=== PATIENT | male | born 1990 | race Caucasian/White ===

== ENCOUNTER 2018-10-19 22:06 | Emergency (ER) | payer SELFPAY ==
[2018-10-19 22:07] VITALS: BP 165/98; PULSE 126; RESP 18; TEMP 36.3; O2SAT 94; BMI 28.3
[2018-10-19 22:37] LABS: Absolute Lymphocyte Count 3.39 X10^3/ul (0.83-4.51); Basophil# 0.04 X10^3/uL; Basophil% 0.3 % (0-1); Eosinophil# 0.17 X10^3/uL; Eosinophils% 1.1 % (0-5); Hematocrit 49.9 % (40-54); Hemoglobin 16.8 g/dl (13.0-16.5); Lymphocyte # 3.39 X10^3/ul (4.0); Lymphocyte % 22.5 % (19-41); Mean Corp Hgb Conc 33.7 g/gl (32-36); Mean Corpuscular Volume 89.1 fL (80-94); Monocyte# 1.37 X10^3/uL; Monocyte% 9.1 % (0-10); Neutrophil # 10.04 X10^3/uL (2.7-7.7); Neutrophil % 66.8 % (47-70); POSITIVE COUNT NO; POSITIVE DIFFERENTIAL NO; POSITIVE MORPHOLOGY NO; Platelet Count 312 K/mm3 (150-450); RBC Distribution Width CV 13.8 % (11.6-14.6); RBC Distribution Width SD 44.9 fl (35.1-43.9)
[2018-10-19 22:49] LABS: Anion Gap 9 (5-15); BUN 19 mg/dL (7-18); BUN/Creat Ratio 15.1 RATIO (10-20); Calcium,Total 9.6 mg/dL (8.5-10.1); Chloride 110 mmol/L (98-107); Creatinine, Serum 1.26 mg/dL (0.70-1.30); EST Glomerular Filtration Rate 72 mL/min (>60); Est Glom Filt Rate - Afr Amer 88 mL/min (>60); Estimated Creatinine Clearance 107.16 ml/min; Glucose 107 mg/dL (74-106); Potassium 3.7 mmol/L (3.5-5.1); Sodium Level 144 mmol/L (136-145)
[2018-10-19 23:27] LABS: Amphetamine Urine VISTA POSITIVE (<1000 ng/mL); Barbiturate Urine VISTA NEGATIVE (< 200 ng/mL); Benzodiazepine Urine VISTA NEGATIVE (< 200 ng/mL); Cocaine Urine VISTA NEGATIVE (< 300 ng/mL); Ecstacy Urine VISTA POSITIVE (< 500 ng/mL); Methadone Urine VISTA NEGATIVE (< 300 ng/mL); PCP Urine VISTA NEGATIVE (< 25 ng/mL); THC Urine VISTA NEGATIVE (< 50 ng/mL); Vista UDS pH Range 6
--- NOTE | 2018-10-19 23:56 | ED.DCSUM_ITS ---
- ER Visit Summary Date of Service: 10/19/18 Chief Complaint: Depression History of Present Illness: The patient is a [address] Godwin. He reports that he got out of [facility] 1 week ago and is living with his sister. They got an argument 2 days ago and he told her I had rather than live here. States that at that time he had used methamphetamine 2 days ago. The sister found out about this today and is concerned that he needs to be assessed for his suicidal thoughts. Patient denies any suicidal or homicidal ideation. No auditory or visual hallucinations. Review of systems: General: No fever, chills, cold sweats. Cardiovascular: No chest pain, palpitations. Respiratory: No cough, shortness of breath, dyspnea on exertion. Gastrointestinal: No abdominal pain, nausea, vomiting, diarrhea, melena, or hematochezia. Genitourinary: No dysuria, frequency, hematuria. Skin: No rash. Neuro: No headache, numbness, weakness. Physical Examination: Vitals: Stable. Afebrile. General: Well-nourished and well-developed. Head: Normocephalic atraumatic. Neck: Supple, no lymphadenopathy. No JVD. Nontender. Cardiovascular: Tachycardic regular rhythm. No murmurs. Respiratory: No respiratory distress. Clear to auscultation bilaterally. Abdominal: Soft, nontender, nondistended, normal bowel sounds. No guarding, rebound, or peritoneal signs. Back: Nontender. Extremities: Nontender, no edema. Skin: Normal color, no rash. Neurologic: Alert and oriented ?3. Cranial nerves II through XII are intact. Normal strength and sensation. Mental status exam: Patient appears their stated age. Good posture and grooming. Good eye contact. Normal rate, volume, and latency of speech. No suicidal or homicidal ideation. No auditory or visual hallucinations. Flow of thought is logical. Insight and judgment is fair. Test Results: Patient had labs for mental health evaluation ordered in triage. These have returned. CBC is remarkable for a white count of 15.0 and hemoglobin of 16.8. Chem-7 is more for chloride 110, BUN of 19, glucose 107. Tox screen shows amphetamines and methamphetamine. But alcohol level 0. Emergency Department Course and Treatment: Patient denies any suicidal thoughts at this time. He denied suicidal thoughts when he stated this to his sister. He reports that he was just upset. Had a prolonged discussion with him about his substance abuse. Treatment Plan: This time patient does not meet criteria for admission to the hospital. He will be discharged with instructions to follow-up with 180 and the counseling center as soon as possible. Follow-up with Dr. Godwin in 1-2 weeks. Return to the emergency department for any worsening symptoms. Disposition: To home in improved and stable condition. Impression: 1. Depression. 2. Methamphetamine abuse. This note was generated with [employer] dictation software. It may contain incorrect words, spelling, and punctuation that were not noted in review of the chart prior to signing ED Disposition - Plan for ED Patient: Disposition: Home or Assisted Living Chief Complaint: Mental Health Instructions: ED Depression, ED Drug Abuse General Referrals: EIGHTY,ONE [STAFF PHYSICIAN] - As soon as possible Counseling,Center [GROUP OF PHYSICIANS] - As soon as possible Tim Godwin MD [Primary Care Provider] - 1-2 Weeks
[2018-10-20 00:02] VITALS: BP 126/90; PULSE 101; RESP 16; O2SAT 100
== END 2018-10-20 00:10 | disposition home or self-care (01) ==
PROVIDERS: Emergency Provider Emergency Medicine; Family Provider Family Medicine; PCP Family Medicine
DX: F32.9 Major depressive disorder, single episode, unspecified (principal); F41.9 Anxiety disorder, unspecified; F15.10 Other stimulant abuse, uncomplicated; Z79.899 Other long term (current) drug therapy; Z72.0 Tobacco use
CPT/HCPCS: 80048; 80307; 80320; 85025; 99282; G0480

== ENCOUNTER 2021-01-18 21:49 | Emergency (ER) | payer MEDICAID, SELFPAY ==
[2021-01-18 21:50] VITALS: BP 165/111; PULSE 135; RESP 16; TEMP 36.4; O2SAT 97; BMI 32.8
--- NOTE | 2021-01-18 22:08 | EKG12_ITS ---
Test Reason : DYSRHYTHMIA Blood Pressure : / mmHG Vent. Rate : 131 BPM Atrial Rate : 131 BPM P-R Int : 160 ms QRS Dur : 100 ms QT Int : 294 ms P-R-T Axes : 041 026 009 degrees QTc Int : 434 ms Sinus tachycardia with occasional Premature ventricular complexes Otherwise normal ECG Confirmed by KAYLA THORNE, SANDY ([id number]), editor managing newspaper HOLLI LYNCH ([id number]) on 01/20/2021 9:30:42 AM Referred By: CL Confirmed By:RAZIA GARZA MD
--- NOTE | 2021-01-18 22:10 | ED.VIS.GEN ---
History of Present Illness Chief Complaint: Mental Health Informant: Patient Narrative: 30-year-old male with no past medical history presents with concern for paranoia. Patient brought in by police after being found outside stating that people are after him. The patient states that there is a small -[place] male that has been following him. States that he met up with his girlfriend at the [facility] [place] and felt like people were following him to the ran away. States that he does use meth. States he used methamphetamine yesterday. Denies any use today. Denies any other con commitment drug abuse. Denies any psychiatric diagnoses. Past Medical History - Allergies and Home Meds Allergies/Adverse Reactions: Allergies No Known Allergies Allergy (Verified 01/18/21 21:51) Primary Care Physician: Tim Godwin MD [COURTESY STAFF PHYSICIAN] - Prior records reviewed: Yes Past Medical History: None Surgical History: no surgical history Lives: Alone Smoking Status: Current every day smoker Alcohol: None Drugs: - - methamphetamine Review of Systems General: Denies: Chills, Fever, Sweats Eyes: Denies: Visual changes - bilaterally, Diplopia ENT: Denies: Rhinorrhea, Sore throat Cardiovascular: Denies: Chest pain, Palpitations Respiratory: Denies: Dyspnea, Cough, Dyspnea on exertion Gastrointestinal: Denies: Abdominal pain, Nausea, Vomiting, Diarrhea, Melena, Hematochezia Genitourinary: Denies: Dysuria, Hematuria, Frequency Musculoskeletal: Denies: Back pain, Extremity Pain Skin: Denies: Rash, Wounds Neurological: Denies: Headache, Weakness, Numbness Psych: Reports: - - paranoia. Denies: Suicidal thoughts, Suicidal ideations Physical Exam Vital Signs/Narrative: Vital Signs Temp Pulse Resp BP Pulse Ox 01/18/21 21:50 97.6 F L 135 H 16 165/111 H 97 Inital Vital Signs reviewed: Yes General: Well nourished, Well developed, No Acute Distress Head: Normocephalic, Atraumatic Eyes: Perrl, EOMI ENT: Moist mucous membranes, No rhinorrhea Neck: Supple, Nontender Cardiovascular: Regular rate, Regular rhythm, No murmurs Respiratory: No distress, CTA bilaterally, Chest nontender Abdomen: Soft, Nontender, Nondistended, Normal bowel sounds Back: Nontender, Normal Inspection Extremities: Nontender, No edema Skin: Normal color, No rash Neurological: Alert, Oriented x3, Cranial nerves II-XII grossly intact, Normal Strength, Normal Sensation Psychological: Normal affect, Normal Mood, - - internally stimulated. paranoid. Diagnostic/Tx/Re-eval Laboratory Data 01/18/21 01/18/21 01/18/21 22:27 22:27 22:27 WBC 12.2 H RBC 5.75 Hgb 16.9 H Hct 50.5 MCV 87.8 MCH 29.4 MCHC 33.5 RDW Std Deviation 44.1 H RDW Coeff of Sarahy 13.6 Plt Count 314 MPV 9.1 Immature Gran % (Auto) 0.300 Neut % (Auto) 68.1 Lymph % (Auto) 21.6 [place] % (Auto) 8.6 Eos % (Auto) 0.7 Baso % (Auto) 0.7 Absolute Neuts (auto) 8.3 H Absolute Lymphs (auto) 2.64 Nucleated RBC % 0 Sodium 142 Potassium 3.3 L Chloride 110 H Carbon Dioxide 26.0 Anion Gap 6 BUN 9 Creatinine 1.31 H Estim Creat Clear Calc 101.23 Est GFR (MDRD) Af Amer 82 Est GFR (MDRD) Non-Af 68 BUN/Creatinine Ratio 6.9 L Glucose 76 Calcium 9.3 Urine Color Urine Clarity Urine pH Ur Specific [place] Urine Protein Urine Glucose (UA) Urine Ketones Urine Occult Blood Urine Nitrite Urine Bilirubin Urine Urobilinogen Ur Leukocyte Esterase Urine RBC Urine WBC Ur Squamous Epith Cells Urine Bacteria Hyaline Casts Fine Granular Casts Urine Mucus Urine Opiates Screen Urine Methadone Screen Ur Barbiturates Screen Ur Phencyclidine Scrn Ur Amphetamines Screen U Methamphetamin-MDMA U Benzodiazepines Scrn Urine Cocaine Screen U Cannabinoids Screen Ur Drug Screen Comment Ethyl Alcohol < 3.0 01/18/21 01/18/21 23:10 23:10 WBC RBC Hgb Hct MCV MCH MCHC RDW Std Deviation RDW Coeff of Sarahy Plt Count MPV Immature Gran % (Auto) Neut % (Auto) Lymph % (Auto) [place] % (Auto) Eos % (Auto) Baso % (Auto) Absolute Neuts (auto) Absolute Lymphs (auto) Nucleated RBC % Sodium Potassium Chloride Carbon Dioxide Anion Gap BUN Creatinine Estim Creat Clear Calc Est GFR (MDRD) Af Amer Est GFR (MDRD) Non-Af BUN/Creatinine Ratio Glucose Calcium Urine Color Yellow Urine Clarity Clear Urine pH 6.0 Ur Specific [place] 1.025 Urine Protein 100 H Urine Glucose (UA) Normal Urine Ketones 5 H Urine Occult Blood 10 H Urine Nitrite Negative Urine Bilirubin Negative Urine Urobilinogen Normal Ur Leukocyte Esterase Negative Urine RBC 0-5 SEEN Urine WBC 0-5 SEEN Ur Squamous Epith Cells 0 SEEN Urine Bacteria 1+ Hyaline Casts 10-25 SEEN Fine Granular Casts 0-5 SEEN Urine Mucus 2+ Urine Opiates Screen NEGATIVE Urine Methadone Screen NEGATIVE Ur Barbiturates Screen NEGATIVE Ur Phencyclidine Scrn NEGATIVE Ur Amphetamines Screen POSITIVE H U Methamphetamin-MDMA POSITIVE H U Benzodiazepines Scrn NEGATIVE Urine Cocaine Screen NEGATIVE U Cannabinoids Screen NEGATIVE Ur Drug Screen Comment Ethyl Alcohol - Rhythm Strip Rhythm Strip: Sinus Tach Rate: 131 Ectopy: PVC(s) - EKG Initial EKG Interpretation: Sinus Tachycardia - Sinus tachycardia at 131 bpm. NH interval 160 ms. QTC of 434 ms. PVC. No evidence of acute ischemia. - Medical Decision Making Patient appears well and nontoxic. Paranoid on exam. Internally stimulated. Initially tachycardic with a heart rate of approximately 130. Patient was given 1 L normal saline, Ativan, Haldol. This did improve the patient's heart rate to approximately 110. Patient does have slightly elevated creatinine likely secondary to volume depletion. He will be given another 1 L normal saline as well as some more Ativan. On reevaluation at 2345 patient is feeling improved. He does remain paranoid. Heart rate continues to improve. At this time patient is medically cleared for evaluation by crisis. After speaking with crisis they feel patient can be discharged home as he has no suicidal ideation and his paranoia has improved following Ativan. Patient's paranoia is likely secondary to his methamphetamine abuse. Patient does have insight into this and does recognize he is paranoid likely secondary to his drug abuse. Advised follow-up with primary care physician and asked to return for new or worsening symptoms. Patient agreeable and stable at time of discharge. Impression: 1. Methamphetamine abuse 2. Paranoia ED Disposition - Plan for ED Patient: Disposition: Home or Assisted Living Instructions: ED Drug Abuse Referrals: Tim Godwin MD [COURTESY STAFF PHYSICIAN] - 2 Days
--- NOTE | 2021-01-18 22:24 | ED.RN ---
NO OLD EKGS IN MUSE
[2021-01-18 22:38] LABS: Absolute Lymphocyte Count 2.64 X10^3/uL (0.83-4.51); Absolute Neutrophil Count 8.3 X10^3/uL (2.0-7.7); Basophil# 0.08 X10^3/uL; Basophil% 0.7 % (0-1); Eosinophil# 0.08 X10^3/uL; Eosinophils% 0.7 % (0-5); Hematocrit 50.5 % (40-54); Hemoglobin 16.9 g/dL (13.0-16.5); Lymphocyte # 2.64 X10^3/ul (4.0); Lymphocyte % 21.6 % (19-41); Mean Corp Hgb Conc 33.5 g/dL (32-36); Mean Corpuscular Hgb 29.4 pg (27.0-32.0); Mean Corpuscular Volume 87.8 fL (80-94); Mean Platelet Vol. 9.1 fl (6.2-12.0); Monocyte# 1.05 X10^3/uL; Monocyte% 8.6 % (0-10); NRBC Flagged by Analyzer 0 % (0-5); Neutrophil # 8.34 X10^3/uL (2.7-7.7); Neutrophil % 68.1 % (47-70); Platelet Count 314 K/mm3 (150-450); RBC Distribution Width CV 13.6 % (11.6-14.6); RBC Distribution Width SD 44.1 fl (35.1-43.9); Red Blood Count 5.75 M/mm3 (4.6-6.2); White Blood Count 12.2 K/mm3 (4.4-11.0)
[2021-01-18 22:52] LABS: Anion Gap 6 (5-15); BUN 9 mg/dL (7-18); BUN/Creat Ratio 6.9 RATIO (10-20); Calcium,Total 9.3 mg/dL (8.5-10.1); Chloride 110 mmol/L (98-107); Creatinine, Serum 1.31 mg/dL (0.70-1.30); EST Glomerular Filtration Rate 68 mL/min (>60); Est Glom Filt Rate - Afr Amer 82 mL/min (>60); Estimated Creatinine Clearance 101.23 ml/min; Glucose 76 mg/dL (74-106); Potassium 3.3 mmol/L (3.5-5.1); Sodium Level 142 mmol/L (136-145)
[2021-01-18 23:00] LABS: Alcohol, Blood (Medical)-Serum < 3.0 mg/dL
[2021-01-18] MEDS: LORazepam 2 MG/ML Syringe 1 MG IV (23:02)
[2021-01-18] MEDS: 0.9% Normal Saline 1,000 ML 999 ML IV (23:03)
[2021-01-18 23:13] LABS: Squamous Epithelial Cells - UA 0 SEEN /hpf (0-5)
[2021-01-18 23:26] LABS: Color, Urine Yellow (Yellow); Glucose, Dipstick Normal (Normal); Ketone-Dipstick 5 mg/dl (Negative); Leukocyte Esterase-Dipstick Negative /ul (Negative); Nitrite-Dipstick Negative (Negative); Occult Blood-Urine 10 /ul (Negative); Protein-Dipstick 100 mg/dl (Negative); Specific Gravity, Urine 1.025 (1.002-1.030); Urine Bilirubin Dipstick Negative (Negative); Urine Clarity Clear (Clear); Urine Urobilinogen Normal (Normal)
[2021-01-18 23:40] VITALS: BP 134/81; PULSE 117
--- NOTE | 2021-01-18 23:40 | ED.RN ---
pt refuses to wear avelino philippe md aware.
[2021-01-18 23:43] LABS: Bacteria 1+ /hpf (None Seen); Hyaline Cast 10-25 SEEN /lpf (0-5); Mucous, Urine 2+ /hpf (<or=2+); Red Blood Cells-Urine 0-5 SEEN /hpf (0-5); White Blood Cells 0-5 SEEN /hpf (0-5)
[2021-01-18 23:44] LABS: Amphetamine Urine VISTA POSITIVE (<1000 ng/mL); Barbiturate Urine VISTA NEGATIVE (< 200 ng/mL); Benzodiazepine Urine VISTA NEGATIVE (< 200 ng/mL); Cocaine Urine VISTA NEGATIVE (< 300 ng/mL); Ecstacy Urine VISTA POSITIVE (< 500 ng/mL); Fine Granular Cast- Urine 0-5 SEEN /lpf (0-5); Methadone Urine VISTA NEGATIVE (< 300 ng/mL); PCP Urine VISTA NEGATIVE (< 25 ng/mL); THC Urine VISTA NEGATIVE (< 50 ng/mL); Vista UDS pH Range 5
[2021-01-19] MEDS: Potassium Chloride Oral Tablet 20 MEQ 40 MEQ PO (00:26)
--- NOTE | 2021-01-19 00:33 | ED.RN ---
PAGED CRISIS AND FAXED THE REPORT
[2021-01-19 00:36] VITALS: BP 130/92; PULSE 113; RESP 18; O2SAT 100
[2021-01-19] MEDS: LORazepam 2 MG/ML Syringe 0.5 MG IV (00:46)
[2021-01-19 02:09] VITALS: PULSE 88; RESP 16; O2SAT 98
== END 2021-01-19 02:10 | disposition home or self-care (01) ==
PROVIDERS: Emergency Provider Emergency Medicine
DX: F15.10 Other stimulant abuse, uncomplicated (principal); F22 Delusional disorders; F17.200 Nicotine dependence, unspecified, uncomplicated
CPT/HCPCS: 80048; 80307; 81001; 82077; 85025; 87426; 93005; 96374; 96375; 99283; J7030; A4216

== ENCOUNTER 2021-01-19 22:40 | Emergency (ER) | payer MEDICAID, SELFPAY ==
[2021-01-18 21:50] VITALS: BMI 32.8
[2021-01-19 22:41] VITALS: BP 161/95; PULSE 112; RESP 18; TEMP 36.2; O2SAT 95; BMI 32.8
--- NOTE | 2021-01-19 23:05 | ED.VIS.GEN ---
History of Present Illness Chief Complaint: Mental Health Informant: Patient, - - Police Current Severity: Moderate Maximum Severity: Moderate Narrative: Patient presents with [facility] [employer] due to paranoia. They reportedly were called to the [employer] [facility] where patient was causing problems. Patient does admit to using meth and states the last use was 2 days ago. He states he was shooting up at that time. Patient states that there are people following him that are going to try to kill him. He has not seen a weapon. He states he just wants someone to believe him. Patient was seen on the , yesterday, for the same complaints. He was evaluated by crisis. Because he was not suicidal or homicidal they felt patient could be treated as an outpatient. Patient returns again tonight with police. - Past Medical History (1) Bipolar disorder Status: Chronic Past Medical History - Allergies and Home Meds Allergies/Adverse Reactions: Allergies No Known Allergies Allergy (Verified 01/19/21 22:41) Primary Care Physician: Care Physician,No Primary [Primary Care Provider] - Surgical History: no surgical history Smoking Status: Current every day smoker Drugs: - - Methamphetamines Review of Systems General: Denies: Chills, Fever Eyes: Denies: Visual changes - bilaterally ENT: Denies: Bilateral ear pain Cardiovascular: Denies: Chest pain Respiratory: Denies: Dyspnea, Cough Gastrointestinal: Denies: Abdominal pain, Vomiting, Diarrhea Musculoskeletal: Denies: Swelling, Extremity Pain Skin: Denies: Rash Neurological: Denies: Headache Psych: Reports: Anxiety. Denies: Suicidal thoughts Allergy: Denies: Uticaria Physical Exam Vital Signs/Narrative: Vital Signs Temp Pulse Resp BP Pulse Ox 01/19/21 22:41 97.1 F L 112 H 18 161/95 H 95 Inital Vital Signs reviewed: Yes General: Well nourished, Well developed Head: Normocephalic Neck: Supple Cardiovascular: Tachycardia Respiratory: No distress, CTA bilaterally Abdomen: Soft, Nontender Back: Nontender Extremities: Nontender Skin: Normal color, No rash Neurological: Alert, Oriented x3 Psychological: - - Operative and talkative. Patient does express paranoia about people following him and he is concerned they are going to follow him here to the hospital. He states he does not feel safe here because he is concerned someone is going to come after him. Diagnostic/Tx/Re-eval Laboratory Results 01/19/21 01/19/21 01/19/21 22:15 22:15 23:28 WBC 11.1 H RBC 5.37 Hgb 16.3 Hct 47.5 MCV 88.5 MCH 30.4 MCHC 34.3 RDW Std Deviation 44.6 H RDW Coeff of Sarahy 14.0 Plt Count 265 MPV 9.4 Immature Gran % (Auto) 0.400 Neut % (Auto) 50.5 Lymph % (Auto) 38.2 [place] % (Auto) 7.5 Eos % (Auto) 2.8 Baso % (Auto) 0.6 Absolute Neuts (auto) 5.6 Absolute Lymphs (auto) 4.26 Nucleated RBC % 0 Sodium 140 Potassium 3.6 Chloride 109 H Carbon Dioxide 26.0 Anion Gap 5 BUN 9 Creatinine 1.04 Estim Creat Clear Calc 127.51 Est GFR (MDRD) Af Amer 107 Est GFR (MDRD) Non-Af 89 BUN/Creatinine Ratio 8.7 L Glucose 90 Calcium 8.9 Urine Opiates Screen Urine Methadone Screen Ur Barbiturates Screen Ur Phencyclidine Scrn Ur Amphetamines Screen U Methamphetamin-MDMA U Benzodiazepines Scrn Urine Cocaine Screen U Cannabinoids Screen Ur Drug Screen Comment Ethyl Alcohol < 3.0 01/20/21 00:30 WBC RBC Hgb Hct MCV MCH MCHC RDW Std Deviation RDW Coeff of Sarahy Plt Count MPV Immature Gran % (Auto) Neut % (Auto) Lymph % (Auto) [place] % (Auto) Eos % (Auto) Baso % (Auto) Absolute Neuts (auto) Absolute Lymphs (auto) Nucleated RBC % Sodium Potassium Chloride Carbon Dioxide Anion Gap BUN Creatinine Estim Creat Clear Calc Est GFR (MDRD) Af Amer Est GFR (MDRD) Non-Af BUN/Creatinine Ratio Glucose Calcium Urine Opiates Screen NEGATIVE Urine Methadone Screen NEGATIVE Ur Barbiturates Screen NEGATIVE Ur Phencyclidine Scrn NEGATIVE Ur Amphetamines Screen POSITIVE H U Methamphetamin-MDMA POSITIVE H U Benzodiazepines Scrn NEGATIVE Urine Cocaine Screen NEGATIVE U Cannabinoids Screen NEGATIVE Ur Drug Screen Comment Ethyl Alcohol - Medical Decision Making Patient was given 1 mg of p.o. Ativan. Patient was evaluated by Becky from the counseling center. She also evaluated the patient last night. She states that the patient's presentation and evaluation are significantly different tonight than previously. Patient was very difficult to redirect and was carrying on a conversation with a light in the room. Patient also told one of the nurses that he wanted to speak with law enforcement about reporting his own homicide as he had been murdered. At this time counseling center is recommending placement and they will work on acceptance. [place] slip has been filled out and faxed to them. Addendum: Patient has been accepted at [facility]. ED Disposition - Plan for ED Patient: Disposition: Psychiatric Hospital or Unit Diagnosis: Paranoia Referrals: Care Physician,No Primary [Primary Care Provider] -
[2021-01-19] MEDS: LORazepam 1 MG Tablet PO (23:27)
[2021-01-19 23:40] VITALS: RESP 18
[2021-01-19 23:42] LABS: Alcohol, Blood (Medical)-Serum < 3.0 mg/dL
[2021-01-19 23:43] LABS: Anion Gap 5 (5-15); BUN 9 mg/dL (7-18); BUN/Creat Ratio 8.7 RATIO (10-20); Calcium,Total 8.9 mg/dL (8.5-10.1); Chloride 109 mmol/L (98-107); Creatinine, Serum 1.04 mg/dL (0.70-1.30); EST Glomerular Filtration Rate 89 mL/min (>60); Est Glom Filt Rate - Afr Amer 107 mL/min (>60); Estimated Creatinine Clearance 127.51 ml/min; Glucose 90 mg/dL (74-106); Potassium 3.6 mmol/L (3.5-5.1); Sodium Level 140 mmol/L (136-145)
[2021-01-19 23:49] LABS: Absolute Lymphocyte Count 4.26 X10^3/uL (0.83-4.51); Absolute Neutrophil Count 5.6 X10^3/uL (2.0-7.7); Basophil# 0.07 X10^3/uL; Basophil% 0.6 % (0-1); Eosinophil# 0.31 X10^3/uL; Eosinophils% 2.8 % (0-5); Hematocrit 47.5 % (40-54); Hemoglobin 16.3 g/dL (13.0-16.5); Lymphocyte # 4.26 X10^3/ul (4.0); Lymphocyte % 38.2 % (19-41); Mean Corp Hgb Conc 34.3 g/dL (32-36); Mean Corpuscular Hgb 30.4 pg (27.0-32.0); Mean Corpuscular Volume 88.5 fL (80-94); Mean Platelet Vol. 9.4 fl (6.2-12.0); Monocyte# 0.84 X10^3/uL; Monocyte% 7.5 % (0-10); NRBC Flagged by Analyzer 0 % (0-5); Neutrophil # 5.61 X10^3/uL (2.7-7.7); Neutrophil % 50.5 % (47-70); Platelet Count 265 K/mm3 (150-450); RBC Distribution Width SD 44.6 fl (35.1-43.9); Red Blood Count 5.37 M/mm3 (4.6-6.2); White Blood Count 11.1 K/mm3 (4.4-11.0)
[2021-01-20] VITALS: RESP 18
--- NOTE | 2021-01-20 00:19 | ED.RN ---
crisis paged to speak with patient
--- NOTE | 2021-01-20 00:41 | ED.RN ---
patient chart faxed to crisis at this time
--- NOTE | 2021-01-20 01:00 | ED.RN ---
crisis talking with patient at this time
[2021-01-20 01:09] LABS: Amphetamine Urine VISTA POSITIVE (<1000 ng/mL); Barbiturate Urine VISTA NEGATIVE (< 200 ng/mL); Benzodiazepine Urine VISTA NEGATIVE (< 200 ng/mL); Cocaine Urine VISTA NEGATIVE (< 300 ng/mL); Ecstacy Urine VISTA POSITIVE (< 500 ng/mL); Methadone Urine VISTA NEGATIVE (< 300 ng/mL); PCP Urine VISTA NEGATIVE (< 25 ng/mL); THC Urine VISTA NEGATIVE (< 50 ng/mL); Vista UDS pH Range 5
[2021-01-20 01:45] VITALS: RESP 18
[2021-01-20 03:10] VITALS: RESP 18
[2021-01-20 04:33] VITALS: BP 124/64; PULSE 72; RESP 16; O2SAT 95
[2021-01-20 04:40] VITALS: BP 124/64; PULSE 72; RESP 16; TEMP 36.4; O2SAT 95
== END 2021-01-20 05:17 ==
PROVIDERS: Emergency Provider Emergency Medicine
DX: F22 Delusional disorders (principal); F17.200 Nicotine dependence, unspecified, uncomplicated
CPT/HCPCS: 80048; 80307; 82077; 85025; 87426; 99285

== ENCOUNTER 2023-03-04 19:57 | Emergency (ER) | payer MEDICAID, SELFPAY ==
[2023-03-04 19:58] VITALS: BP 137/86; PULSE 102; RESP 18; TEMP 36.8; O2SAT 97; BMI 30.7
--- NOTE | 2023-03-04 22:56 | EDS_ITS ---
HPI History of Present Illness Chief Complaint: Allergic Reaction Informant: patient Narrative Narrative: Patient concerned he may have poison lani. 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 No systemic symptoms. He is not confident that he was around a specific plant including poison lani but just assumes that what this is. States he had it a couple of weeks ago, was not nearly as bad as this, he did not get any medications for it. [facility] Medical History Hypertension Left knee pain Substance abuse Synovial cyst of popliteal space [Do], left knee Home Medications quetiapine 25 mg tablet (Seroquel) 25 mg PO DAILY 10/11/22 [History Last Taken Unknown] prednisone 20 mg tablet 40 mg PO QHS #12 TABLETS 03/04/23 [Rx Last Taken Unknown] Allergy/AdvReac Type Severity Reaction Status Date / Time No Known Allergies Allergy Verified 03/04/23 19:59 Social History Smoking Status: Current every day smoker tobacco type: cigarettes alcohol intake: never substance use type: former substance user what type of physical activity do you participate in: other details: push ups, 300 daily ROS ROS ED Respiratory/Chest Respiratory/Chest: Denies dyspnea Integumentary Reports as per HPI, pruritus and rash Neurologic Neurologic: Denies headache(s), paresthesias or weakness EXAM Physical Exam Const Vital Signs: 03/04/23 19:58 Temperature 98.2 F Temperature Source Temporal Pulse Rate 102 H Respiratory Rate 18 Blood Pressure 137/86 H Blood Pressure Mean 103 Pulse Ox 97 Oxygen Delivery Method Room Air Positive well nourished and well developed General Appearance ED: well developed and NAD Extremity General Extremety ED: Negative for edema or tenderness General Extremity: Negative for edema Neuro oriented x3, CN's II-XII intact bilaterally and no sensory deficits noted Motor Exam: strength 5/5 throughout Psych mental status grossly normal Skin Skin Narrative: Change in mental status rash throughout many areas of body, most prominent on forearms, erythema blanching but no vesicular lesions, petechiae, bullae. Basically just patches of itchy erythema. There are some on the legs, trunk, forehead. MDM MDM MDM Narrative Medical decision making narrative: I reassured him this is not Beatriz dermatitis but the treatment would be the same given that it is still likely a plant-related contact dermatitis. We will give him prednisone and appropriate discharge instructions, he has Benadryl at home to take for tonight for itching. Discharge Plan Triage Chief Complaint: Allergic Reaction ED Provider: Aldair Bruce Dx/Rx/DC Orders Clinical Impression: Allergic contact dermatitis due to plant Instructions: Avoiding Poison Lani Poison [place] ..., Understanding Contact Dermatitis Prescriptions: New prednisone 20 mg tablet 40 mg PO QHS Qty: 12 0RF No Action quetiapine [Seroquel] 25 mg tablet 25 mg PO DAILY Primary Care Provider: Care Physician,No Primary Referrals: Doctor,Your [Non-Staff] - 10-14 Days if not better Disposition Disposition: Home, Self Care
[2023-03-04] MEDS: predniSONE 20 MG Tablet 40 MG PO (23:03)
== END 2023-03-04 23:10 | disposition home or self-care (01) ==
PROVIDERS: Emergency Provider Emergency Medicine; Visit Provider Emergency Medicine
DX: L23.7 Allergic contact dermatitis due to plants, except food (principal)
CPT/HCPCS: 99283

== ENCOUNTER 2023-09-15 20:22 | Emergency (ER) | payer MEDICAID, SELFPAY ==
[2023-09-15 20:22] VITALS: BP 148/93; PULSE 125; RESP 16; TEMP 36.8; O2SAT 99; BMI 31.6
[2023-09-15 20:33] VITALS: BP 159/109; PULSE 108; RESP 16; O2SAT 98
--- NOTE | 2023-09-15 20:34 | ED.VIS.CHEST ---
HPI History of Present Illness Chief Complaint: Chest Pain Informant: patient Onset/Context/Timing Onset: Today and Hours Activity at onset: gradual Timing: Continuous Location: Left Chest Current Severity: Mild Maximum Severity: Mild Worsened By: Movement of Torso Relieved By: Nothing Associated Symptoms: Negative for Nausea, Vomiting, Diaphoresis, Dyspnea, Cough, Fever, Lightheadedness, Acid Reflux or Palpitations Narrative Narrative: 33-year-old male no significant past medical history. Does state that he has a history of IV drug abuse or uses methamphetamine. Denies any cardiac history. No history of DVT or PE. No risk factors. No recent travel, surgery or immobilization. No leg pain or swelling. No hemoptysis. States he gets left upper shoulder upper chest pain has been getting this intermittently for 5 years. There is times he does not get it at all. Today around 11 AM after he woke up he had a discomfort. He said normally goes away and has not today. He denies any fall injury or trauma. He is not having any shortness of breath. No fever. No chills. No diaphoresis. No exertional symptoms. No significant family history. Prior Similar Symptoms: Yes Recent Illness/Hospitalization: No CVD Risk Factors: Negative for Hypertension, Diabetes, Hypercholesterolemia, Family History 1' </=55 or Smoking PE Risk Factors: Negative for Recent Travel/Surgery, Recent Immobilization, Prior DVT or PE, Cancer or OCP + Smoking + >/=35 TAD Risk Factors: Negative for Marfan's Syndrome [facility] Medical History Hypertension Left knee pain Substance abuse Synovial cyst of popliteal space [Do], left knee Home Medications NK 09/15/23 [History Last Taken Unknown] Allergy/AdvReac Type Severity Reaction Status Date / Time No Known Allergies Allergy Verified 09/15/23 20:24 Family History no significant family his no significant family history Surgical History no surgical history no surgical history Social History Smoking Status: Current every day smoker tobacco type: cigarettes alcohol intake: never substance use type: former substance user what type of physical activity do you participate in: other details: push ups, 300 daily ROS ROS ED ROS Narrative His recent illness. Atypical nonexertional left upper chest and shoulder pain. Review of Systems ROS Unobtainable: Denies due to encephalopathy Constitutional Constitutional ED: Denies chills or fever(s) Eyes Eyes: Reports none ENT ENT ED: Denies ear pain Cardiovascular Cardiovascular: Reports as per HPI and chest pain; Denies orthopnea, palpitations, paroxysmal nocturnal dyspnea or racing heartbeat Respiratory/Chest Respiratory/Chest: Denies cough, dyspnea, dyspnea on exertion, orthopnea, paroxysmal nocturnal dyspnea or sputum Gastrointestinal Gastrointestinal: Denies abdominal pain, constipation, diarrhea, melena, nausea or vomiting Genitourinary Genitourinary ED: Denies dysuria or hematuria Musculoskeletal Musculoskeletal: Denies arthralgias Integumentary Denies abscess Neurologic Neurologic: Denies headache(s) Psychiatric Psychiatric: Denies anxiety Endocrine Endocrinology: Denies cold intolerance Hematologic/Lymphatic Hematologic/Lymphatic: Denies easy bleeding, easy bruising or lymphadenopathy Allergic/Immunologic Allergic/Immunologic ED: Denies mouth swelling, tongue swelling, urticaria or other EXAM Physical Exam Narrative Exam Narrative: Well-appearing 33-year-old male. Vital signs stable afebrile. He does not look septic toxic nor is he in any distress. Pulse ox 99% on room air no signs hypoxia. HEENT exam unremarkable. Neck nontender. No lymphadenopathy. Lungs clear to auscultation bilaterally. Heart regular rhythm rate about 100 no murmur. Chest wall shoulder and back are all nontender. Abdomen soft nontender normal bowel sounds no peritoneal signs. Moving all 4 extremities. Calves are nontender without edema. No cords. Equal symmetrical radial pulses. Full range of motion of his left arm and shoulder. No axillary lymphadenopathy or tenderness. Back nontender. Neurologically is awake alert with no focal motor deficits. Skin no rashes. Multiple tattoos. Track quiles in both antecubital regions. No no infected IVDU sites. Const Vital Signs: 09/15/23 20:22 09/15/23 20:33 09/15/23 20:33 Temperature 98.3 F Temperature Source Oral Pulse Rate 125 H 108 H Respiratory Rate 16 16 Blood Pressure 148/93 H 159/109 H Blood Pressure Mean 111 125 Pulse Ox 99 98 98 Oxygen Delivery Method Room Air Room Air Room Air Positive well nourished, well developed and unkempt; Negative for obese, cachectic or contractures General Appearance ED: unkempt, well developed and NAD; Negative for cachectic, contractures or pallor Nutritional Appearance: Negative for cachectic or obese HEENT Reports moist mucous membranes normocephalic and atraumatic; Negative for trauma or tenderness Eyes PERRL and EOMs intact bilaterally General Eye ED: Negative for pale conjunctiva or scleral icterus Neck no lymphadenopathy, supple and no JVD General: Negative for tenderness Chest Wall inspection of chest normal and palpation of chest normal Chest: Negative for tenderness Resp normal respiratory effort and clear to auscultation bilaterally Effort and Inspection: Negative for respiratory distress Auscultation: Negative for rales, rhonchi or wheezes Cardio regular rate, regular rhythm, S1 normal heart sound, S2 normal heart sound and no murmurs Peripheral Pulses: pulses 2+ throughout GI normal to inspection, nondistended, normoactive bowel sounds, soft to palpation, non-tender, non-distended and no masses Auscultation: Negative for hyperactive bowel sounds Palpation: Negative for splenomegaly Back/Spine no CVA tenderness and no thoracic nor lumbar tenderness General Back: Negative for CVA tenderness Cervical Spine: Negative for cervical spine tenderness Extremity normal to inspection General Extremety ED: Negative for edema, pulses abnormal or tenderness General Extremity: Negative for edema or pulses abnormal Neuro oriented x3, CN's II-XII intact bilaterally and gait normal Sensorium / Orientation: awake, alert, oriented to person, oriented to place and oriented to time; Negative for confused, lethargic, stuporous or other Motor Exam: strength 5/5 throughout Psych mental status grossly normal Appearance: unkempt Attitude: No agitated Mood & Affect: Negative for depressed, anxious or tearful Skin no rashes or lesions noted and no wounds General Skin Exam: Negative for jaundice or pallor Rashes: No rashes noted Trauma: Negative for abrasion or laceration Heart Score History: Slightly/Non-Suspicious ECG: Normal Age: </= 45 years Risk Factors: No Risk Factors Troponin: </= Normal Limit Score: 0 MDM MDM MDM Narrative Medical decision making narrative: 32-year-old male with atypical nonreproducible left upper chest shoulder discomfort. Clinically this does not sound to be cardiac in etiology. He has a history of IV drug abuse definitely sound like endocarditis or pericarditis or myocarditis. He has had intermittent episodes of this over 5 years. He is never had a DVT or PE nor risk factors. His exam is unremarkable. Will undergo cardiac work-up. Then will be reassessed. Repeat exam patient doing well at 9:40 PM. We went over his test results. He is comfortable being discharged home with outpatient follow-up. History & Record Review Discussion w/independent historian: Patient Additional record(s) reviewed:: Prior inpatient record, Prior outpatient record, Prior ED visit and Prior labs Lab Data Attestation: I reviewed the patient's lab results. Lab results narrative: Patient is a white count 11.8. H&H of 18.3 and 55.7. Platelet count 296. BMP is unremarkable gap of 4 normal BUN of 10 creatinine 1.1. Glucose 115. Troponin is 6. Labs: Laboratory Results - last 24 hr 09/15/23 20:42 WBC 11.8 H RBC 6.29 H Hgb 18.3 H* Hct 55.7 H MCV 88.6 MCH 29.1 MCHC 32.9 RDW Std Deviation 41.7 RDW Coeff of Sarahy 12.8 Plt Count 296 MPV 8.8 Immature Gran % (Auto) 0.200 Neut % (Auto) 62.2 Lymph % (Auto) 28.1 [place] % (Auto) 5.5 Eos % (Auto) 3.1 Baso % (Auto) 0.9 Absolute Neuts (auto) 7.3 Absolute Lymphs (auto) 3.31 Nucleated RBC % 0 Diff Path Review May foll Sodium 139 Potassium 3.8 Chloride 107 Carbon Dioxide 28.0 Anion Gap 4 L BUN 10 Creatinine 1.17 Estim Creat Clear Calc 110.25 Est GFR (MDRD) Af Amer 92 Est GFR (MDRD) Non-Af 76 BUN/Creatinine Ratio 8.5 L Glucose 115 H Calcium 8.9 Troponin I High Sens 6 Radiography Chest X-Ray - ED: 1 View, Read by ED Physician, Heart, Lungs, Mediastinum, Bony Structures, No Acute Disease and Chronic Changes Diagnostic Testing: Right, portable, single view shows no acute abnormality. Interpreted by myself. Normal cardiac silhouette. Normal lung bob. No infiltrate. No pneumothorax. Rhythm Strip Rhythm Strip: Sinus Rhythm Rate: 100 Ectopy: None EKG Initial EKG: Attestation: I personally reviewed and interpreted this EKG as follows: Interpretation: Sinus Rhythm and No Acute Injury Pattern Comments: Normal sinus rhythm. Rate 100. No acute signs of ND or ischemia. No S1Q3T3. No old EKG available for comparison. Prior EKG tracings: not available for review Prior: No Prior Discharge Plan Triage Chief Complaint: Chest Pain ED Provider: Jayden Whitt Dx/Rx/DC Orders Clinical Impression: History of intravenous drug abuse, Chest pain of uncertain etiology Instructions: ED Chest Pain, Uncertain Cause Prescriptions: No Action NK Primary Care Provider: Care Physician,No Primary Referrals: Shaheed Mckeon MD [Non-Staff] - 1 Week if not improving Care Physician,No Primary [Primary Care Provider] - Activity Restrictions/Additional Instructions: Your exam was normal. Your labs were unremarkable. Your chest x-ray and EKG were normal. Follow-up to get a local primary care physician. Long-term follow-up with 180 and for your long-term health try to stop using the methamphetamines. Disposition Disposition: Home, Self Care
[2023-09-15 20:52] LABS: Absolute Lymphocyte Count 3.31 X10^3/uL (0.83-4.51); Absolute Neutrophil Count 7.3 X10^3/uL (2.0-7.7); Basophil# 0.11 X10^3/uL; Basophil% 0.9 % (0-1); Eosinophil# 0.37 X10^3/uL; Eosinophils% 3.1 % (0-5); Lymphocyte # 3.31 X10^3/ul (0.83-4.51); Lymphocyte % 28.1 % (19-41); Mean Corp Hgb Conc 32.9 g/dL (32-36); Mean Corpuscular Hgb 29.1 pg (27.0-32.0); Mean Corpuscular Volume 88.6 fL (80-94); Mean Platelet Vol. 8.8 fl (6.2-12.0); Monocyte# 0.65 X10^3/uL; Monocyte% 5.5 % (0-10); NRBC Flagged by Analyzer 0 % (0-5); Neutrophil # 7.31 X10^3/uL (2.7-7.7); Neutrophil % 62.2 % (47-70); Platelet Count 296 K/mm3 (150-450); RBC Distribution Width CV 12.8 % (11.6-14.6); RBC Distribution Width SD 41.7 fl (35.1-43.9); Red Blood Count 6.29 M/mm3 (4.6-6.2); White Blood Count 11.8 K/mm3 (4.4-11.0)
[2023-09-15 21:04] LABS: Hematocrit 55.7 % (40-54)
[2023-09-15 21:05] LABS: Hemoglobin 18.3 g/dL (13.0-16.5)
[2023-09-15 21:17] LABS: Anion Gap 4 (5-15); BUN 10 mg/dL (7-18); BUN/Creat Ratio 8.5 RATIO (10-20); Calcium,Total 8.9 mg/dL (8.5-10.1); Chloride 107 mmol/L (98-107); Creatinine, Serum 1.17 mg/dL (0.70-1.30); EST Glomerular Filtration Rate 76 mL/min (>60); Est Glom Filt Rate - Afr Amer 92 mL/min (>60); Estimated Creatinine Clearance 110.25 ml/min; Glucose 115 mg/dL (74-106); Potassium 3.8 mmol/L (3.5-5.1); Sodium Level 139 mmol/L (136-145); Troponin-I HS 6 pg/mL (3.0-78.0)
--- NOTE | 2023-09-15 21:20 | RAD_ITS ---
EXAM: XR CHEST, 1 VIEW CLINICAL INDICATION: chest pain TECHNIQUE: Frontal view of the chest. COMPARISON: No relevant prior studies available. FINDINGS: LUNGS AND PLEURAL SPACES: Unremarkable. No consolidation or edema. No pneumothorax. No effusion. HEART: Unremarkable. Cardiac silhouette not enlarged. MEDIASTINUM: Central airways and mediastinal contour are unremarkable. BONES/JOINTS: Unremarkable. No acute fracture. SOFT TISSUES: Unremarkable. RAD/Chest 1 View (Portable) IMPRESSION: No radiographic evidence of acute cardiopulmonary disease. Electronically Signed: Antonio Nicole MD at 21:45 EST ,
[2023-09-17 10:09] LABS: Pathologist Review Reviewed
== END 2023-09-15 22:10 | disposition home or self-care (01) ==
PROVIDERS: Emergency Provider Emergency Medicine; Visit Provider Emergency Medicine
DX: R07.9 Chest pain, unspecified (principal); F17.210 Nicotine dependence, cigarettes, uncomplicated
CPT/HCPCS: 71045; 80048; 84484; 85025; 93005; 99283

== ENCOUNTER 2023-12-23 16:45 | Outpatient (REF) | payer SELFPAY ==
[2023-12-23 16:46] VITALS: BP 144/94; PULSE 130; RESP 18; TEMP 36.1; O2SAT 98
--- NOTE | 2023-12-23 18:00 | CT_ITS ---
EXAM: CT CHEST, ABDOMEN AND PELVIS WITHOUT INTRAVENOUS CONTRAST CLINICAL INDICATION: Foreign Body abdomen, Bilateral lung pain TECHNIQUE: Helically acquired images were obtained of the chest, abdomen and pelvis without intravenous contrast. This CT exam was performed using one or more of the following dose reduction techniques: automated exposure control, adjustment of the mA and/or kV according to patient size, and/or use of iterative reconstruction technique. COMPARISON: No relevant prior studies available. FINDINGS: CHEST: LUNGS AND PLEURAL SPACES: There is a calcified granuloma in the right upper lobe. No mass. No pleural effusion or thickening. No pneumothorax. HEART: Unremarkable. Heart size is normal. No pericardial effusion. No significant coronary artery calcifications. MEDIASTINUM: Unremarkable. No mediastinal or hilar adenopathy. Esophagus is unremarkable. No hiatal hernia. THYROID: Unremarkable. No thyroid lesions. ABDOMEN: LIVER: Unremarkable. Homogeneous. GALLBLADDER AND BILE DUCTS: Unremarkable. No calcified gallstones. No gallbladder distention or wall edema. No intra- or extrahepatic biliary ductal dilation. PANCREAS: Unremarkable. No focal cystic mass. SPLEEN: Unremarkable. Normal size without focal cystic or solid mass. ADRENALS: Unremarkable. No nodules. KIDNEYS AND URETERS: Unremarkable. Normal renal size and position. No hydronephrosis. STOMACH AND BOWEL: Unremarkable. No stomach or bowel distention. No focal inflammatory change. PELVIS: APPENDIX: No evidence of acute appendicitis. BLADDER: Unremarkable. REPRODUCTIVE: Unremarkable as visualized. No mass. CHEST, ABDOMEN and PELVIS: INTRAPERITONEAL SPACE: Unremarkable. No ascites or other fluid collection. No free air. BONES/JOINTS: Unremarkable. No suspicious lytic or blastic abnormality. SOFT TISSUES: Unremarkable. No discrete abdominal or pelvic wall hernia. VASCULATURE: Unremarkable. Aorta is non-dilated. LYMPH NODES: Unremarkable. No enlarged lymph nodes. CT/CT Chest, Abd, Pelvis WO Cont IMPRESSION: No acute findings in the chest, abdomen or pelvis. Electronically Signed: Parish Castro MD at 18:58 EST ,
--- NOTE | 2023-12-23 18:19 | EX.ED.DYSGE1 ---
HPI History of Present Illness Chief Complaint: Foreign Body Narrative Narrative: 33-year-old male past medical history of bipolar disorder, states that on occasion he injects meth amphetamines, presents in custody of police because officers report that scan was done at the detention, and they suspect foreign body in his abdomen. Patient denies ingestion of any foreign body, no abdominal pain, but he does state that he has been having lung pain for 5 years, worse over the last few weeks. He is presented in custody of police to see if he has a foreign body in his abdomen. [facility] Medical History Hypertension Left knee pain Substance abuse Synovial cyst of popliteal space [Do], left knee Home Medications NK 09/15/23 [History Last Taken Unknown] Allergy/AdvReac Type Severity Reaction Status Date / Time No Known Allergies Allergy Verified 12/23/23 16:46 Social History Smoking Status: Current every day smoker tobacco type: cigarettes alcohol intake: never substance use type: former substance user what type of physical activity do you participate in: other details: push ups, 300 daily ROS ROS ED ROS Narrative Constitutional: No fever, no chills. HEENT: No sore throat. No neck pain. No loss of vision. No rhinorrhea. Cardiovascular: No chest pain. No palpitations. No pedal edema. Respiratory: No cough, no shortness of breath. Chronic bilateral lung pain. Abdominal: No abdominal pain. No nausea. No vomiting. Genitourinary: No dysuria. No hematuria. Musculoskeletal: No myalgias. No arthralgias. Neurologic: No headaches. No dizziness. No lightheadedness. Skin: No rash. No change in color. Psychiatric: No depression. No anxiety. EXAM Physical Exam Narrative Exam Narrative: Afebrile. Vital signs noted. HEENT: Normocephalic. Atraumatic. PERRL, EOMI. Neck soft and supple. No point tenderness or step off. Cardiovascular: Positive tachycardia no murmurs, rubs, or gallops appreciated. Respiratory: No tachypnea. Lungs clear to auscultation bilaterally. Gastrointestinal: Abdomen soft, nontender, with normoactive bowel sounds. No rebound or guarding. Neurological: Awake. Alert. Nonfocal, nonlateralizing. Skin: No rash. Normal color. No pallor. Musculoskeletal: No pedal edema. Full range of motion extremities. Const Vital Signs: 12/23/23 16:46 12/23/23 18:04 12/23/23 19:14 Temperature 96.9 F L 96.8 F L Temperature Source Temporal Pulse Rate 130 H 117 H Respiratory Rate 18 20 H Respiratory Effort Normal Non-Labored Respiratory Pattern Normal Blood Pressure 144/94 H 149/102 H Blood Pressure Mean 110 117 Pulse Ox 98 95 Oxygen Delivery Method Room Air MDM MDM MDM Narrative Medical decision making narrative: Concern would be for foreign body ingestion, versus trapped air in colon/rectum, versus bowel obstruction but in review of the pictures from the scanner, they appear to be periumbilical, that there is a paucity of air that could be more nonspecific. CT scan of the thorax and of the abdomen and pelvis was obtained without contrast. I reviewed the CT radiology report of the chest, abdomen, and pelvis. While there is a granuloma in the lung, there is no evidence of foreign body in the abdomen or pelvis. At this point in time, I feel he can be discharged in custody of police. He is in stable condition. Radiography Diagnostic Testing: Clinical Impression(s) from Imaging Studies Chest/Abdomen/Pelvis CT 12/23/23 18:00 IMPRESSION: No acute findings in the chest, abdomen or pelvis. Electronically Signed: Parish Castro MD at 18:58 EST Reading Location ID and State: [facility] / [place] Tel , Service support , Discharge Plan Admission Attending Provider: Meño Brown Primary Care Provider: Care Physician,No Primary Instructions Patient Instructions: ED Screening Exam Medical Nonurgent Additional Instructions / Restrictions: There is no evidence of foreign body in the abdomen. You do have a lung granuloma which is a nonspecific finding/benign finding. Discharge Orders/Prescriptions Prescriptions: No Action NK Referrals / Follow Up: Care Physician,No Primary [Primary Care Provider] - Disposition Disposition (needs filled in before D/C Order can be placed): Home, Self Care
[2023-12-23 19:14] VITALS: BP 149/102; PULSE 117; RESP 20; TEMP 36; O2SAT 95
== END 2023-12-23 19:15 | disposition home or self-care (01) ==
LOC: ED 16:45
PROVIDERS: Visit Provider Emergency Medicine
DX: Z71.1 Person with feared health complaint in whom no diagnosis is made (principal); F31.9 Bipolar disorder, unspecified; J84.10 Pulmonary fibrosis, unspecified; F17.210 Nicotine dependence, cigarettes, uncomplicated
CPT/HCPCS: 71250; 74176

== ENCOUNTER 2024-06-06 22:42 | Emergency (ER) | payer MEDICAID, SELFPAY ==
[2024-06-06 22:43] VITALS: BP 154/113; PULSE 103; RESP 18; TEMP 36.6; O2SAT 98; BMI 33.7
--- NOTE | 2024-06-06 23:06 | ED.VIS.CHEST ---
HPI History of Present Illness Chief Complaint: Chest Other [facility] Medical History Hypertension Left knee pain Substance abuse Synovial cyst of popliteal space [Do], left knee Home Medications ?Medication ?Instructions ?Recorded ?Last Taken ?Type NK 09/15/23 Unknown History Allergy/AdvReac Type Severity Reaction Status Date / Time No Known Allergies Allergy Verified 06/06/24 22:46 Social History Smoking Status: Current every day smoker tobacco type: cigarettes alcohol intake: never substance use type: former substance user what type of physical activity do you participate in: other details: push ups, 300 daily EXAM Physical Exam Const Vital Signs: 06/06/24 22:43 06/06/24 23:08 06/07/24 00:43 Temperature 98 F Temperature Source Temporal Pulse Rate 103 H 85 Respiratory Rate 18 18 Blood Pressure 154/113 H 118/82 H Blood Pressure Mean 126 94 Pulse Ox 98 98 Oxygen Delivery Method Room Air Room Air Room Air 06/07/24 02:00 Temperature 98.1 F Temperature Source Pulse Rate 91 Respiratory Rate 22 H Blood Pressure 134/97 H Blood Pressure Mean 109 Pulse Ox 98 Oxygen Delivery Method MDM MDM MDM Narrative Medical decision making narrative: HISTORY OF PRESENT ILLNESS: 33-year-old male presents with right-sided chest pain. He notes this began 6 months ago. Notes movement makes it worse. He notes there is tightness that goes into the neck and back or shoulder. The patient further states pain is typically worse after eating. Worse after moving his right upper extremity. States he abuses meth. Sometimes he injects. He denies fever. He notes pain radiates from the right chest/armpit area into the neck. Denies any focal numbness or weakness. The patient denies recent surgery in the last 4 weeks or immobilization in the last 3 days, denies previous diagnosis of DVT or PE, hemoptysis, unilateral leg swelling or malignancy with treatment the last 6 months or palliative. No estrogen use noted. Patient denies sudden onset of pain, no tearing sensation, no migratory symptoms, no new numbness, weakness or loss of sensation. Patient denies family history or personal history of Connective tissue disorders (Marfan's Syndrome, Martha Danlos etc) REVIEW OF SYSTEMS: Pertinent positives: Chest pain Pertinent negatives: Syncope, headache PHYSICAL EXAM: Nursing triage notes reviewed, Vital signs reviewed Constitutional: please see [facility] HENT: MMM Eyes: Pupils equal round and reactive to light, Extraocular muscles intact Neck: No stridor, no JVD, full neck ROM Lungs: Clear to auscultation, No wheezing or rales. No increased work of breathing, no conversational dyspnea, no accessory muscle use, no nasal flaring. No respiratory distress noted Heart: Regular rate and rhythm, No murmurs, No rubs and No gallops, 2+ distal pulses (radial, femoral, posterior tibial) in all extremities Abdomen: Soft, there is no tenderness, rigidity, rebound or guarding, no obvious peritoneal signs, no palpable pulsatile abdominal masses, no auscultated abdominal bruit : No CVAT Extremities: No edema Neuro: No focal neurological deficits, cranial nerves II through XII intact, 5/5 strength in all extremities. Intact sensation to light touch in all extremities, 2+ reflexes bilateral patella tendons. Normal gait. No ataxia. Skin: No rash or lesions noted MEDICAL DECISION MAKING: Chief Complaint: Chest pain External records reviewed: Imaging reviewed: CT scan of the chest abdomen pelvis from November 2023 was unremarkable. Specifically states aorta is nondilated. Factors affecting care: Bipolar disorder, hypertension Social determinants of health: History of bipolar disorder, methamphetamine abuse, IV drug abuse History obtained from others: none Consults: none [facility] Narrative: Patient was initially hypertensive, mildly tachycardic 103, he is afebrile and nontoxic-appearing. Exam without carotid bruits. Exam without pulse deficits. Exam without focal neurologic deficits. I considered the following differential diagnosis: PE, dissection, ACS, arrhythmia, endocarditis I obtained a broad lab and imaging workup to further elucidate the etiology of the patient's complaints. ALL IMAGES (IF OBTAINED) HAVE BEEN PERSONALLY REVIEWED AND INTERPRETED BY MYSELF. EKG with sinus tachycardia to 104, normal axis, no intervals, no High-sensitivity troponin is negative, no evidence of myocardial ischemia x 2 CBC with leukocytosis suggestive of systemic inflammation likely reactive from recent polysubstance abuse, hemoconcentration owing to dehydration, no thrombocytopenia BMP without evidence of significant electrolyte abnormalities, no anion gap, no acute kidney injury. I have personally reviewed the patient's chest x-ray. Chest x-ray is unremarkable for pulmonary edema, pneumothorax, pneumonia or focal cardiopulmonary abnormality. CT of the chest shows no evidence of PE or dissection, no evidence of pneumonia or signs of bacterial emboli There is no obvious signs of endocarditis on labs or images. The synthesis of the patient's history, physical exam, labs and images suggest likely meth induced chest pain. Patient's vital signs improved with a blood pressure 118/82 and heart rate of 85 after aspirin and fluids. I suspect his symptoms are related to substance abuse. Encouraged him to not use substances specifically IV drugs. Patient was clinically sober and appropriate for discharge home. The patient and/or family, caregivers express understanding. The patient and/or family, caregivers agrees with the plan. Shared decision making: I will have a discussion with the patient and or visitors regarding risk/benefits of further testing or admission. They will be made aware of of the risk/benefits inherent in this decision they will be given the opportunity to voice understanding. Total critical care time today provided was at least 0 minutes. This excludes separately billable procedures. Critical care time (if documented) is secondary to the patient having high probability of clinically significant/life threatening deterioration in the patient's condition which required my urgent intervention. Impression: 1. Chest pain 2. Methamphetamine abuse Dispo: Discharge home This note was generated with Fotofeedback dictation software. It may contain incorrect words, spelling, and punctuation that were not noted in review of the chart prior to signing. Lab Data Labs: Laboratory Results - last 24 hr 06/06/24 06/07/24 23:21 01:22 WBC 12.1 H RBC 6.03 Hgb 16.8 H Hct 52.0 MCV 86.2 MCH 27.9 MCHC 32.3 RDW Std Deviation 42.6 RDW Coeff of Sarahy 13.6 Plt Count 276 MPV 8.7 Immature Gran % (Auto) 0.400 Neut % (Auto) 57.8 Lymph % (Auto) 32.6 [place] % (Auto) 6.0 Eos % (Auto) 2.3 Baso % (Auto) 0.9 Absolute Neuts (auto) 7.0 Absolute Lymphs (auto) 3.95 Nucleated RBC % 0 Sodium 139 Potassium 3.9 Chloride 106 Carbon Dioxide 30.0 Anion Gap 3 L BUN 10 Creatinine 1.23 Estim Creat Clear Calc 123.65 Est GFR (MDRD) Af Amer 87 Est GFR (MDRD) Non-Af 72 BUN/Creatinine Ratio 8.1 L Glucose 99 Calcium 9.4 Troponin I High Sens 4 4 Radiography Diagnostic Testing: Clinical Impression(s) from Imaging Studies Chest X-Ray 06/06/24 23:42 IMPRESSION: No radiographic evidence of acute cardiopulmonary disease. Electronically Signed: Robert Copeland MD at 0:13 EDT , Chest CTA 06/07/24 00:00 IMPRESSION: Thick linear left lateral lung base atelectasis versus scarring. No other significant acute pulmonary parenchymal abnormality. No acute thoracic aortic abnormality. Distal pulmonary artery branch vessel evaluation is suboptimal secondary to timing of contrast bolus as well as respiratory motion, however, there is no obvious proximal pulmonary embolus. Fatty liver. Electronically Signed: Mane Castañeda MD at 1:38 EDT , Discharge Plan Triage Chief Complaint: Chest Other ED Provider: Nick Ma Dx/Rx/DC Orders Clinical Impression: Methamphetamine abuse Instructions: ED Chest Pain, Noncardiac Prescriptions: No Action NK Primary Care Provider: Care Physician,No Primary Referrals: Russ Garay MD [Med Staff - Active Staff] - Activity Restrictions/Additional Instructions: Thank you for trusting us with your care today! Your test today did not show signs of damage to your heart or lungs. Please refrain from using drugs including methamphetamine. Please take Tylenol (2 pills, 650 mg), ibuprofen (2 pills, 400 mg) every 6 hours as needed for pain and fever control. Please return to the emergency department if your symptoms change or worsen. Please follow with your primary care physician for further outpatient evaluation and management. Print Language: [place] Disposition Disposition: Home, Self Care Discharge Date/Time: 06/07/24 02:04
--- NOTE | 2024-06-06 23:08 | EKG12_ITS ---
Test Reason : CP Blood Pressure : / mmHG Vent. Rate : 104 BPM Atrial Rate : 104 BPM P-R Int : 174 ms QRS Dur : 104 ms QT Int : 334 ms P-R-T Axes : 041 053 021 degrees QTc Int : 439 ms Sinus tachycardia Otherwise normal ECG Confirmed by IDRIS THORNE, ARLEY ([id number]), editor producer VANE ALTAMIRANO ([id number]) on 06/08/2024 9:44:49 AM Referred By: PEPE Confirmed By:ARLEY STEINBERG MD
[2024-06-06] MEDS: 0.9% Normal Saline (1000mL) 1,000 ML 999 ML IV (23:29)
[2024-06-06] MEDS: Aspirin 81 MG TAB.CHEW 324 MG PO (23:29)
[2024-06-06 23:30] LABS: Absolute Lymphocyte Count 3.95 X10^3/uL (0.83-4.51); Basophil# 0.11 X10^3/uL; Basophil% 0.9 % (0-1); Eosinophil# 0.28 X10^3/uL; Eosinophils% 2.3 % (0-5); Hemoglobin 16.8 g/dL (13.0-16.5); Lymphocyte # 3.95 X10^3/ul (0.83-4.51); Lymphocyte % 32.6 % (19-41); Mean Corp Hgb Conc 32.3 g/dL (32-36); Mean Corpuscular Hgb 27.9 pg (27.0-32.0); Mean Corpuscular Volume 86.2 fL (80-94); Mean Platelet Vol. 8.7 fl (6.2-12.0); Monocyte# 0.73 X10^3/uL; NRBC Flagged by Analyzer 0 % (0-5); Neutrophil # 6.98 X10^3/uL (2.7-7.7); Neutrophil % 57.8 % (47-70); Platelet Count 276 K/mm3 (150-450); RBC Distribution Width CV 13.6 % (11.6-14.6); RBC Distribution Width SD 42.6 fl (35.1-43.9); Red Blood Count 6.03 M/mm3 (4.6-6.2); White Blood Count 12.1 K/mm3 (4.4-11.0)
--- NOTE | 2024-06-06 23:42 | RAD_ITS ---
INDICATION: chest pain EXAMINATION/TECHNIQUE: X-RAY - portable upright AP chest x-ray COMPARISON: 09/15/2023 FINDINGS: LINES/DEVICES: None. LUNGS: No consolidation, edema or effusion. No pneumothorax. MEDIASTINUM AND CARDIOVASCULAR STRUCTURES: Cardiac silhouette not enlarged. Central airways and mediastinal contour are unremarkable. BONES AND SOFT TISSUES: Unremarkable. RAD/Chest 1 View (Portable) IMPRESSION: No radiographic evidence of acute cardiopulmonary disease. Electronically Signed: Robert Copeland MD at 0:13 EDT ,
[2024-06-06 23:48] LABS: Anion Gap 3 (5-15); BUN 10 mg/dL (7-18); BUN/Creat Ratio 8.1 RATIO (10-20); Calcium,Total 9.4 mg/dL (8.5-10.1); Chloride 106 mmol/L (98-107); Creatinine, Serum 1.23 mg/dL (0.70-1.30); EST Glomerular Filtration Rate 72 mL/min (>60); Est Glom Filt Rate - Afr Amer 87 mL/min (>60); Estimated Creatinine Clearance 123.65 ml/min; Glucose 99 mg/dL (74-106); Potassium 3.9 mmol/L (3.5-5.1); Sodium Level 139 mmol/L (136-145); Troponin-I HS (w/2H Reflex) 4 pg/mL (3.0-78.0)
--- NOTE | 2024-06-07 | CT_ITS ---
INDICATION: Chest pain, r/o PE EXAMINATION: - CTA Chest WO/W Contrast Injection A radiation dose optimization technique was used for this scan. RADIATION DOSAGE (If Supplied By Facility): CTDIvol/DLP = ( 30.07 ) / ( 523.11 ) mGy/mGycm COMPARISON: Chest radiograph previous day and chest CT 12/23/2023.. FINDINGS: Contrast enhanced serial CTA axial images through the chest with coronal and sagittal reformatted series. Additional dedicated coronal and sagittal MIP reformatted series provided as well. IV Contrast dosage and agent: 93 cc [id number] IV. MEDIASTINUM: No acute thoracic aortic abnormality. Small amount of fluid in the superior pericardial recess. Distal pulmonary artery branch vessel evaluation is suboptimal secondary to timing of contrast bolus as well as respiratory motion, however, there are no obvious proximal pulmonary artery filling defects. Small hiatal hernia. Mediastinum is otherwise unremarkable. LUNG PARENCHYMA: Thick linear left lateral lung base atelectasis versus scarring. No other significant acute pulmonary parenchymal abnormality. PLEURA: No pleural effusion. No pneumothorax. BONES: Osseous structures are unremarkable for age. UPPER ABDOMEN: Fatty liver. CT/CTA Chest W/WO Contrast IMPRESSION: Thick linear left lateral lung base atelectasis versus scarring. No other significant acute pulmonary parenchymal abnormality. No acute thoracic aortic abnormality. Distal pulmonary artery branch vessel evaluation is suboptimal secondary to timing of contrast bolus as well as respiratory motion, however, there is no obvious proximal pulmonary embolus. Fatty liver. Electronically Signed: Mane Castañeda MD at 1:38 EDT ,
[2024-06-07 00:43] VITALS: BP 118/82; PULSE 85; RESP 18; O2SAT 98
[2024-06-07 01:27] LABS: Reflex Troponin-HS? (from REC) Y
[2024-06-07 01:49] LABS: Troponin-I HS 4 pg/mL (3.0-78.0)
[2024-06-07 02:00] VITALS: BP 134/97; PULSE 91; RESP 22; TEMP 36.7; O2SAT 98
== END 2024-06-07 02:04 | disposition home or self-care (01) ==
PROVIDERS: Emergency Provider Emergency Medicine; Visit Provider Emergency Medicine
DX: F15.10 Other stimulant abuse, uncomplicated (principal); F31.9 Bipolar disorder, unspecified; R07.9 Chest pain, unspecified; I10 Essential (primary) hypertension; F17.210 Nicotine dependence, cigarettes, uncomplicated
CPT/HCPCS: 71045; 71275; 80048; 84484; 85025; 93005; 96360; 96361; 99283; J7030; Q9967; A4216